=== PATIENT | male | born 1950 | race African-American/Black ===

== ENCOUNTER 2018-10-11 05:20 | Inpatient (IN) | payer MEDICARE, MEDICAID ==
[~2018-10-11] VITALS: Ht 188 cm; Wt 117.5 kg
[~2018-10-11 05:20] MED LIST: AMLO10TA80 PO; ASPI-1159 PO; GABA-531 PO; HYDR-4009 PO; IBUP-2030 PO; [UNRECOGNIZED DRUG - CODE] PO
[2018-10-11 06:43] LABS: CLARITY URINE CLEAR (CLEAR); COLOR URINE YELLOW (YELLOW); KETONES URINE NEGATIVE (NEGATIVE); LEUKOCYTE ESTERASE URINE NEGATIVE (NEGATIVE); NITRITE URINE NEGATIVE (NEGATIVE); OCCULT BLOOD URINE NEGATIVE (NEGATIVE); PROTEIN URINE NEGATIVE (NEGATIVE); SPECIFIC GRAVITY URINE 1.017 (1.005-1.030); UROBILINOGEN URINE 0.2 E.U./dL (0.2-1.0)
[2018-10-11] MEDS ORDERED: TRANEXAMIC ACID 1,000 MG/10 ML IV ONE (06:45)
[2018-10-11] MEDS ORDERED: TRANEXAMIC ACID 1,000 MG in SODIUM CHLORIDE 0.9% 100 ML IV SCH ×2 (06:45→12:45)
[2018-10-11] MEDS ORDERED: LACTATED RINGERS 1,000 ML IV SCH (08:00)
[2018-10-11] MEDS ORDERED: MORPHINE SULFATE/PF 1MG/ML 10ML AMP ONE ×2 (08:54→09:44)
[2018-10-11] MEDS ORDERED: BUPIVACAINE/EPINEPH/PF 0.25%/0.0005 10ML ONE (08:54)
[2018-10-11] MEDS ORDERED: VANCOMYCIN HCL 500 MG/VIAL ONE (08:55)
[2018-10-11] MEDS ORDERED: NORMAL SALINE 0.9% 10 ML SYR ONE ×3 (08:55→12:47)
[2018-10-11] MEDS ORDERED: EPINEPHRINE 1:1000 1 MG/ML AMP ONE (08:55)
[2018-10-11] MEDS ORDERED: BACITRACIN 50,000 UNITS/VIAL ONE ×2 (08:55→12:47)
[2018-10-11] MEDS ORDERED: BUPIVACAINE HCL/DEXTROSE/PF 0.75% 2ML AMP INJ ONE (09:44)
[2018-10-11] MEDS ORDERED: FENTANYL CITRATE/PF 50MCG/ML 2ML VIAL ONE (09:58)
[2018-10-11] MEDS ORDERED: NEOSTIGMINE METHYLSULFATE 1MG/ML 10 ML VIAL ONE (09:58)
[2018-10-11] MEDS ORDERED: PROPOFOL 200MG/20ML VIAL IV ONE (09:59)
[2018-10-11] MEDS ORDERED: MIDAZOLAM HCL 2 MG/2 ML VIAL ONE (09:59)
[2018-10-11] MEDS ORDERED: ROCURONIUM BROMIDE 10MG/ML VIAL 5ML IV ONE ×2 (09:59→15:02)
[2018-10-11] MEDS ORDERED: GLYCOPYRROLATE 0.2 MG/ML 2ML VIAL ONE (09:59)
[2018-10-11] MEDS ORDERED: HYDROMORPHONE HCL/PF 2MG/ML CPJ IV PRN (10:45)
[2018-10-11] MEDS ORDERED: MEPERIDINE HCL/PF 25MG/ML CPJ IV PRN (10:45)
[2018-10-11] MEDS ORDERED: LABETALOL 5MG/ML SYR 20 MG/4 ML SYRINGE IV PRN (10:45)
[2018-10-11] MEDS ORDERED: NALOXONE HCL 0.4 MG/ML 1ML VIAL IV PRN (10:45)
[2018-10-11] MEDS ORDERED: ONDANSETRON HCL 4MG/2ML INJ IV PRN ×2 (10:45→14:15)
[2018-10-11] MEDS ORDERED: DEXAMETHASONE 4MG/ML 1ML VIAL ONE (10:53)
[2018-10-11] MEDS ORDERED: ONDANSETRON HCL 4MG/2ML INJ ONE (10:53)
[2018-10-11] MEDS ORDERED: LOSA1TAB40 PO (11:31)
[2018-10-11] MEDS ORDERED: ALBUMIN HUMAN 12.5G/250ML (5%) IV ONE ×2 (11:40→11:56)
[2018-10-11] MEDS ORDERED: GELATIN SPONGE,ABSORBABLE 12-7MM SPONGE ONE (11:40)
[2018-10-11] MEDS ORDERED: THROMBIN (BOVINE) 5000 UNITS/VIAL TOP ONE (11:40)
[2018-10-11] MEDS ORDERED: TERA1CAP7 PO (12:17)
[2018-10-11] MEDS ORDERED: NITR0.4T49 SL (12:17)
[2018-10-11] MEDS ORDERED: OXYC10TA58 PO (12:17)
[2018-10-11] MEDS ORDERED: ALBU18HF2 IH (12:17)
[2018-10-11] MEDS ORDERED: BENZ100C86 PO (12:18)
[2018-10-11] MEDS ORDERED: [UNRECOGNIZED DRUG - OTHER] HHN (12:23)
[2018-10-11] MEDS ORDERED: TAMS0.4C31 PO (12:23)
[2018-10-11] MEDS ORDERED: FLUT1BLS3 IH (12:23)
[2018-10-11] MEDS ORDERED: HYDROMORPHONE PCA 10MG/50ML IV PRN (14:15)
[2018-10-11] MEDS ORDERED: ACETAMINOPHEN 650MG/20.3ML UDC PO PRN (14:15)
[2018-10-11] MEDS ORDERED: ONDANSETRON INJ IV PRN (14:15)
[2018-10-11] MEDS ORDERED: NALOXONE INJ IV PRN (14:15)
[2018-10-11] MEDS ORDERED: MAGNESIUM HYDROXIDE 400MG/5ML 30ML UDC PO PRN (14:15)
[2018-10-11] MEDS ORDERED: HYDROCODONE/ACETAMINOPHEN 10/325MG TABLET PO PRN (14:15)
[2018-10-11] MEDS ORDERED: HYDROMORPHONE HCL/PF 2MG/ML (OR) ONE (15:05)
[2018-10-11 16:00] VITALS: BP 102/75
[2018-10-11 20:00] VITALS: BP 130/73
[2018-10-11] MEDS: DOCUSATE SODIUM 100MG CAPSULE PO SCH (21:00)
[2018-10-11 21:59] VITALS: BP 129/82
[2018-10-11] MEDS: DEXT 5%/0.45% NACL 1000ML 1,000 ML IV SCH (22:27)
[2018-10-11] MEDS: ONDANSETRON HCL 4MG/2ML INJ IV PRN (22:28)
[2018-10-11] MEDS: CEFAZOLIN 2,000 MG in DEXT 5% WATER 100 ML IV SCH (22:28)
[2018-10-12] VITALS: BP 131/78
[2018-10-12 04:00] VITALS: BP 108/69
[2018-10-12] MEDS: IPRATROPIUM/ALBUTEROL 0.5-3(2.5)MG/3ML NEB HHN SCH ×5 (05:03→20:54)
[2018-10-12 06:33] LABS: BASOPHILS % 0.3 % (0.0-2.0); HEMOGLOBIN. 9.1 g/dL (14.0-18.0); LYMPHOCYTES % 7.4 % (20.0-50.0); MEAN CORPUSCULAR HEMOGLOBIN 29.6 pg (28.0-32.0); MEAN CORPUSCULAR VOLUME 91.3 fL (80.0-94.0); MEAN PLATELET VOLUME 7.6 fl (7.4-10.4); MONOCYTES % 12.2 % (2.0-8.0); NEUTROPHILS % 80.1 % (40.0-76.0); PLATELET 309 x1000/uL (130-400); RED BLOOD CELL COUNT 3.06 mill/uL (4.7-6.1); RED CELL DISTRIBUTION WIDTH 17.4 % (11.6-14.6)
[2018-10-12] MEDS: CEFAZOLIN 2,000 MG in DEXT 5% WATER 100 ML IV SCH (06:58)
[2018-10-12 08:00] VITALS: BP 138/76
[2018-10-12] MEDS: DOCUSATE SODIUM 100MG CAPSULE PO SCH ×2 (08:22→17:00)
[2018-10-12] MEDS ORDERED: FLUTICASONE FUROATE 200 1 INH/CAP ORI SCH (09:00)
[2018-10-12] MEDS: FLUTICASONE FUROATE 100 1 INH/CAP ORI SCH (09:00)
[2018-10-12] MEDS: ENOXAPARIN 40MG/0.4ML SYR SUBCUT SCH (10:16)
[2018-10-12] MEDS: DEXT 5%/0.45% NACL 1000ML 1,000 ML IV SCH (11:18)
[2018-10-12 12:00] VITALS: BP 136/71
[2018-10-12 16:00] VITALS: BP 161/81
[2018-10-12] MEDS: HYDROCODONE/ACETAMINOPHEN 10/325MG TABLET PO PRN ×2 (16:22→22:24)
[2018-10-12 20:00] VITALS: BP 163/87
[2018-10-12] MEDS: ONDANSETRON HCL 4MG/2ML INJ IV PRN (20:20)
[2018-10-12] MEDS: ZOLPIDEM TARTRATE 5MG TABLET PO PRN (22:18)
[2018-10-13] VITALS: BP_SYST 144; BP_SYST 157; BP_DIAS 77; BP_DIAS 85
[2018-10-13] MEDS: IPRATROPIUM/ALBUTEROL 0.5-3(2.5)MG/3ML NEB HHN SCH ×6 (00:21→21:58)
[2018-10-13 04:00] VITALS: BP 172/95
[2018-10-13] MEDS: HYDROCODONE/ACETAMINOPHEN 10/325MG TABLET PO PRN ×3 (06:54→20:55)
[2018-10-13 07:32] LABS: HEMATOCRIT. 29.4 % (42.0-52.0); HEMOGLOBIN. 9.5 g/dL (14.0-18.0); MEAN CORPUSCULAR HEMOGLOBIN 29.4 pg (28.0-32.0); MEAN CORPUSCULAR VOLUME 90.9 fL (80.0-94.0); MEAN PLATELET VOLUME 7.7 fl (7.4-10.4); PLATELET 298 x1000/uL (130-400); RED BLOOD CELL COUNT 3.23 mill/uL (4.7-6.1); RED CELL DISTRIBUTION WIDTH 17.2 % (11.6-14.6)
[2018-10-13 08:00] VITALS: BP 154/86
[2018-10-13] MEDS: FLUTICASONE FUROATE 100 1 INH/CAP ORI SCH (09:00)
[2018-10-13] MEDS: DOCUSATE SODIUM 100MG CAPSULE PO SCH ×2 (09:47→17:00)
[2018-10-13] MEDS: ENOXAPARIN 40MG/0.4ML SYR SUBCUT SCH (09:47)
[2018-10-13 12:00] VITALS: BP 164/83
[2018-10-13 14:09] LABS: PLATELET ESTIMATE NORMAL
[2018-10-13] MEDS: AMLODIPINE 10MG TABLET PO SCH (15:31)
[2018-10-13] MEDS: TERAZOSIN HCL 1MG CAPSULE PO SCH (15:31)
[2018-10-13] MEDS: TAMSULOSIN HCL 0.4MG SR CAPSULE PO SCH (15:32)
[2018-10-13 16:00] VITALS: BP 153/91
[2018-10-13 21:30] VITALS: BP 124/59
[2018-10-13] MEDS: ZOLPIDEM TARTRATE 5MG TABLET PO PRN (22:48)
[2018-10-14] VITALS: BP_SYST 138; BP_SYST 87; BP_DIAS 54; BP_DIAS 70
[2018-10-14] MEDS: IPRATROPIUM/ALBUTEROL 0.5-3(2.5)MG/3ML NEB HHN SCH ×5 (01:18→15:51)
[2018-10-14 04:00] VITALS: BP 151/86
[2018-10-14 08:00] VITALS: BP 140/88
[2018-10-14] MEDS: ENOXAPARIN 40MG/0.4ML SYR SUBCUT SCH (09:53)
[2018-10-14] MEDS: TERAZOSIN HCL 1MG CAPSULE PO SCH (09:54)
[2018-10-14] MEDS: TAMSULOSIN HCL 0.4MG SR CAPSULE PO SCH (09:54)
[2018-10-14] MEDS: DOCUSATE SODIUM 100MG CAPSULE PO SCH ×2 (09:55→09:59)
[2018-10-14] MEDS: AMLODIPINE 10MG TABLET PO SCH (09:55)
[2018-10-14] MEDS: HYDROCODONE/ACETAMINOPHEN 10/325MG TABLET PO PRN ×2 (09:57→16:02)
[2018-10-14] MEDS: FLUTICASONE FUROATE 100 1 INH/CAP ORI SCH (11:41)
[2018-10-14] MEDS: DEXT 5%/0.45% NACL 1000ML 1,000 ML IV SCH (11:43)
[2018-10-14] MEDS ORDERED: MORPHINE SULFATE 4 MG/ML CPJ (NOT FOR IM USE) IV SCH (13:00)
[2018-10-14 15:03] VITALS: BP 135/72
[2018-10-14 16:00] VITALS: BP 135/72
[2018-10-14 16:02] VITALS: BP 145/82
== END 2018-10-14 16:15 | DRG 470 ==
LOC: OR 05:20 → OBSVTOIN 20:12 → INTOOBSV 20:12 → 6EST 20:12
PROVIDERS: ADMIT Internal Medicine; ATTEND Orthopaedic Surgery
PROC: 0SRB04A Replacement of Left Hip Joint with Ceramic on Polyethylene Synthetic Substitute, Uncemented, Open Approach (ICD-10-PCS; principal; 2018-10-11)
DX: M16.12 Unilateral primary osteoarthritis, left hip (principal); M87.9 Osteonecrosis, unspecified; R71.0 Precipitous drop in hematocrit; M17.12 Unilateral primary osteoarthritis, left knee; I10 Essential (primary) hypertension; J44.9 Chronic obstructive pulmonary disease, unspecified; E78.5 Hyperlipidemia, unspecified; E66.9 Obesity, unspecified; N40.0 Benign prostatic hyperplasia without lower urinary tract symptoms; Z68.33 Body mass index [BMI] 33.0-33.9, adult; Z99.81 Dependence on supplemental oxygen; Z79.899 Other long term (current) drug therapy
CPT/HCPCS: 36415; 71045; 72170; 73502; 80048; 86850; 86900; 86920; 88305; 88311; 94640; 97163; 97166; 97530; C1776; C1893; G0378; J0171; J0690; J1100; J1170; J1650; J2250; J2274; J2405; J2704; J2710; J3010; J3370; J3490; J7050; J7060; J7620; P9041

== ENCOUNTER 2019-12-18 13:00 | Emergency (ER) | payer MEDICARE, MEDICAID ==
[~2019-12-18] VITALS: Ht 185.4 cm; Wt 104.0 kg
[~2019-12-18 13:00] MED LIST changes: +ALBU18HF2 IH; -ASPI-1159 PO; +ASPI-1497 PO; +BENZ100C86 PO; +FLUT1BLS3 IH; -GABA-531 PO; +LOSA1TAB40 PO; +NITR0.4T49 SL; +OXYC10TA58 PO; +TAMS0.4C31 PO; +TERA1CAP7 PO; -[UNRECOGNIZED DRUG - CODE] PO; +[UNRECOGNIZED DRUG - OTHER] HHN
[2019-12-18 14:58] LABS: CHLORIDE 103 mEq/L (98-107)
[2019-12-18 14:59] LABS: EOSINOPHILS % 7.4 % (0.0-5.0); HEMATOCRIT. 37.8 % (42.0-52.0); HEMOGLOBIN. 12.6 g/dL (14.0-18.0); LYMPHOCYTES % 22.1 % (20.0-50.0); MEAN CORPUSCULAR HEMOGLOBIN 31.3 pg (28.0-32.0); MEAN PLATELET VOLUME 7.5 fl (7.4-10.4); MONOCYTES % 9.2 % (2.0-8.0); NEUTROPHILS % 60.3 % (40.0-76.0); PLATELET 340 x1000/uL (130-400); RED BLOOD CELL COUNT 4.02 mill/uL (4.7-6.1); RED CELL DISTRIBUTION WIDTH 16.3 % (11.6-14.6)
[2019-12-18 15:00] LABS: PROTHROMBIN TIME 10.4 sec (9.6-11.0)
[2019-12-18 15:02] LABS: CLARITY URINE CLEAR (CLEAR); COLOR URINE YELLOW (YELLOW); KETONES URINE TRACE (NEGATIVE); LEUKOCYTE ESTERASE URINE NEGATIVE (NEGATIVE); NITRITE URINE NEGATIVE (NEGATIVE); OCCULT BLOOD URINE NEGATIVE (NEGATIVE); PH URINE 6.5 (4.5-8.0); PROTEIN URINE NEGATIVE (NEGATIVE); SPECIFIC GRAVITY URINE 1.031 (1.005-1.030)
[2019-12-18] MEDS ORDERED: BENZONATATE 100MG CAPSULE PO PRN (20:15)
[2019-12-18] MEDS ORDERED: ACETAMINOPHEN 325MG TABLET PO PRN (20:15)
[2019-12-18] MEDS: ENOXAPARIN 30MG/0.3ML SYR SUBCUT SCH (20:46)
[2019-12-18] MEDS: AZITHROMYCIN 500 MG TABLET PO SCH (20:46)
[2019-12-19] MEDS: ENOXAPARIN 30MG/0.3ML SYR SUBCUT SCH (10:27)
[2019-12-19] MEDS: AZITHROMYCIN 500 MG TABLET PO SCH (10:27)
[2019-12-19] MEDS ORDERED: IPRA3AMP9 NEB (11:05)
[2019-12-19] MEDS ORDERED: AZIT250T12 MT (11:05)
[2019-12-19 12:00] VITALS: BP 125/65
== END 2019-12-19 12:10 | disposition home or self-care (01) ==
LOC: ER 13:00 → EDBEDREQ 18:34 → EDBEDREQTM 18:34 → EDBEDREQ 19:12 → CANRESERV 12-19 11:03 → ENRESERV 12-19 11:03 → CANBEDREQ 12-19 11:59 → ER 12-19 12:10
DX: J44.0 Chronic obstructive pulmonary disease with (acute) lower respiratory infection (principal); J96.20 Acute and chronic respiratory failure, unspecified whether with hypoxia or hypercapnia; I11.9 Hypertensive heart disease without heart failure; E86.0 Dehydration; E11.9 Type 2 diabetes mellitus without complications; D64.9 Anemia, unspecified; E66.9 Obesity, unspecified; Z68.30 Body mass index [BMI] 30.0-30.9, adult; Z71.3 Dietary counseling and surveillance; Z99.81 Dependence on supplemental oxygen; Z79.899 Other long term (current) drug therapy; Z20.828 Contact with and (suspected) exposure to other viral communicable diseases
CPT/HCPCS: 36415; 71045; 80053; 81003; 82962; 83605; 83880; 84145; 84484; 85025; 85610; 87040; 87086; 87635; 87804; 93005; 96372; 99285; J1650

== ENCOUNTER 2019-12-29 13:06 | Emergency (ER) | payer MEDICARE, MEDICAID ==
[~2019-12-29] VITALS: Ht 175.3 cm; Wt 95.0 kg
[~2019-12-29 13:06] MED LIST changes: +AZIT250T12 MT; +IPRA3AMP9 NEB
[2019-12-29] MEDS ORDERED: KETOROLAC 30MG/ML VIAL IM ONE (14:30)
[2019-12-29 14:41] VITALS: BP 178/88
== END 2019-12-29 16:42 | disposition home or self-care (01) ==
LOC: ER 13:06
DX: M25.552 Pain in left hip (principal); E11.9 Type 2 diabetes mellitus without complications; I10 Essential (primary) hypertension; J44.9 Chronic obstructive pulmonary disease, unspecified; Z79.899 Other long term (current) drug therapy; Z79.82 Long term (current) use of aspirin
CPT/HCPCS: 73522; 96372; 99283; J1885

== ENCOUNTER 2022-04-02 15:16 | Emergency (ER) | payer MEDICARE, MEDICAID ==
[~2022-04-02] VITALS: Ht 172.7 cm; Wt 91.0 kg
[~2022-04-02 15:16] MED LIST changes: +ALBU2.5V13 NEB; +P50 PO; +TERA1CAP53 PO; -TERA1CAP7 PO
[2022-04-02] MEDS ORDERED: SODIUM CHLORIDE 0.9% 1,000 ML IV ONE (16:15)
[2022-04-02 16:29] LABS: BASOPHILS % 0.8 % (0.0-2.0); EOSINOPHILS % 8.2 % (0.0-5.0); HEMATOCRIT. 35.3 % (42.0-52.0); HEMOGLOBIN. 11.3 g/dL (14.0-18.0); LYMPHOCYTES % 12.7 % (20.0-50.0); MEAN CORPUSCULAR HEMOGLOBIN 28.1 pg (28.0-32.0); MEAN CORPUSCULAR VOLUME 87.7 fL (80.0-94.0); MEAN PLATELET VOLUME 7.2 fl (7.4-10.4); MONOCYTES % 12.6 % (2.0-8.0); NEUTROPHILS % 65.7 % (40.0-76.0); PLATELET 377 x1000/uL (130-400); RED BLOOD CELL COUNT 4.03 mill/uL (4.7-6.1); RED CELL DISTRIBUTION WIDTH 29.6 % (11.6-14.6)
[2022-04-02] MEDS ORDERED: ACETAMINOPHEN 325MG TABLET PO ONE (16:30)
[2022-04-02 16:36] LABS: CHLORIDE 108 mEq/L (98-107)
[2022-04-02 16:37] LABS: PROTHROMBIN TIME 11.1 sec (9.6-11.0)
[2022-04-02 16:48] LABS: ETHANOL BLOOD < 10 mg/dL
[2022-04-02 16:55] LABS: PLATELET ESTIMATE NORMAL
[2022-04-02] MEDS ORDERED: KETOROLAC 30MG/ML VIAL IV ONE (17:15)
[2022-04-02 18:00] VITALS: BP 149/88
[2022-04-02 18:21] LABS: CLARITY URINE CLEAR (CLEAR); COLOR URINE YELLOW (YELLOW); KETONES URINE NEGATIVE (NEGATIVE); LEUKOCYTE ESTERASE URINE NEGATIVE (NEGATIVE); NITRITE URINE NEGATIVE (NEGATIVE); OCCULT BLOOD URINE NEGATIVE (NEGATIVE); PH URINE 5.5 (4.5-8.0); PROTEIN URINE NEGATIVE (NEGATIVE); SPECIFIC GRAVITY URINE 1.027 (1.005-1.030); UROBILINOGEN URINE 0.2 E.U./dL (0.2-1.0)
[2022-04-02 18:54] LABS: *AMPHETAMINES SCREEN URINE NEGATIVE (NEGATIVE); *BARBITURATES SCREEN URINE NEGATIVE (NEGATIVE); *BENZODIAZEPINES SCREEN URINE NEGATIVE (NEGATIVE); *COCAINE SCREEN URINE NEGATIVE (NEGATIVE); CANNABINOID URINE SCREEN NEGATIVE (NEGATIVE); METHADONE URINE SCREEN NEGATIVE (NEGATIVE); OPIATES URINE SCREEN PRESUMTIVE POSITIVE (NEGATIVE); PHENCYCLIDINE URINE SCREEN NEGATIVE (NEGATIVE)
== END 2022-04-02 18:50 | disposition home or self-care (01) ==
LOC: ER 15:16
DX: R55 Syncope and collapse (principal); I11.9 Hypertensive heart disease without heart failure; E11.9 Type 2 diabetes mellitus without complications; J44.9 Chronic obstructive pulmonary disease, unspecified; Z87.891 Personal history of nicotine dependence; Z79.82 Long term (current) use of aspirin
CPT/HCPCS: 36415; 70450; 71045; 74176; 80053; 80305; 80320; 81003; 83690; 83880; 84484; 85025; 85610; 93005; 96374; 99285; J1885; J7030; G0480

== ENCOUNTER 2024-02-01 12:55 | Emergency (ER) | payer MEDICARE, MEDICAID ==
[~2024-02-01] VITALS: Ht 185.4 cm; Wt 100.0 kg
[2024-02-01 13:01] VITALS: O2SAT 98
[2024-02-01] MEDS: IBUPROFEN 800MG TABLET PO ONE (15:57)
[2024-02-01] MEDS: HYDROCODONE/ACETAMINOPHEN 7.5/325MG TABLET PO ONE (15:57)
[2024-02-01] MEDS ORDERED: HYDR-4001 MT (17:39)
[2024-02-01] MEDS ORDERED: P50 MT (17:39)
[2024-02-01] MEDS ORDERED: ALBU90AE INH (17:39)
[2024-02-01 18:41] VITALS: BP 149/95; PULSE 77; RESP 14; TEMP 98.2
== END 2024-02-01 18:44 | disposition home or self-care (01) ==
LOC: ER 13:27
DX: R07.81 Pleurodynia (principal); J44.1 Chronic obstructive pulmonary disease with (acute) exacerbation; Z79.82 Long term (current) use of aspirin; Z79.899 Other long term (current) drug therapy
CPT/HCPCS: 71045; 71101; 99284

== ENCOUNTER 2025-01-19 18:31 | Inpatient (IN) | payer MEDICARE, MEDICAID ==
[~2025-01-19] VITALS: Ht 185.4 cm; Wt 108.0 kg
[~2025-01-19 18:31] MED LIST changes: +ALBU90AE INH; +HYDR-4001 MT; +P50 MT
[2025-01-19] MEDS: ACETAMINOPHEN 500MG TABLET PO ONE (20:22)
[2025-01-19 20:23] LABS: CHLORIDE 110 mEq/L (98-107); POTASSIUM 3.9 mEq/L (3.5-5.1); SODIUM 142 mEq/L (136-145)
[2025-01-19 20:24] LABS: CALCIUM 9.5 mg/dL (8.7-10.4); CARBON DIOXIDE 22 mEq/L (21-32)
[2025-01-19] MEDS: LIDOCAINE 5% PATCH TOP SCH (20:26)
[2025-01-19 20:28] LABS: BASOPHILS % 0.9 % (0.0-2.0); EOSINOPHILS % 12.4 % (0.0-5.0); HEMATOCRIT. 38.1 % (42.0-52.0); HEMOGLOBIN. 12.5 g/dL (14.0-18.0); LYMPHOCYTES % 19.4 % (20.0-50.0); MEAN CORPUSCULAR HGB CONC 32.9 g/dL (31.0-37.0); MEAN CORPUSCULAR VOLUME 94.2 fL (80.0-94.0); MEAN PLATELET VOLUME 7.6 fl (7.4-10.4); MONOCYTES % 9.8 % (2.0-8.0); NEUTROPHILS % 57.5 % (40.0-76.0); PLATELET 258 x1000/uL (130-400); RED BLOOD CELL COUNT 4.04 mill/uL (4.7-6.1); RED CELL DISTRIBUTION WIDTH 15.2 % (11.6-14.6); WHITE BLOOD COUNT 5.6 x1000/uL (4.5-11.0)
[2025-01-19 20:29] LABS: CREATININE 1.5 mg/dL (0.6-1.3); GLUCOSE 124 mg/dL (70-105); UREA NITROGEN BLOOD 22 mg/dL (9-23)
[2025-01-19 20:36] LABS: TROPONIN I HIGH SENSITIVITY < 4 ng/L (3.0-53)
[2025-01-19] MEDS ORDERED: DIPHENHYDRAMINE 50MG/ML VIAL IV PRN (22:30)
[2025-01-19] MEDS ORDERED: IPRATROPIUM/ALBUTEROL 0.5-3(2.5)MG/3ML NEB HHN PRN (22:30)
[2025-01-19] MEDS ORDERED: MAGNESIUM/ALUMINUM HYDROXIDE/SIMETHICONE 30ML UDC PO PRN (22:30)
[2025-01-19] MEDS ORDERED: ONDANSETRON HCL 4MG/2ML INJ IV PRN (22:30)
[2025-01-19] MEDS ORDERED: ACETAMINOPHEN 325MG TABLET PO PRN (22:30)
[2025-01-19] MEDS ORDERED: DEXTROSE 50% WATER 50ML SYRINGE IV PRN (22:30)
[2025-01-19 23:12] VITALS: BP 145/80; PULSE 80; RESP 16; TEMP 36.9; TEMP 37; O2SAT 99
[2025-01-20] VITALS: BP 118/80; PULSE 72; RESP 15; TEMP 36.8; O2SAT 99
[2025-01-20] MEDS: TRAMADOL 50MG TABLET PO PRN (00:09)
[2025-01-20] MEDS: GABAPENTIN 300MG CAPSULE PO SCH (00:09)
[2025-01-20] MEDS ORDERED: MIRT45TA83 PO (03:45)
[2025-01-20] MEDS ORDERED: TRAZ-252 PO (03:45)
[2025-01-20] MEDS ORDERED: EMPA1TAB7 PO (03:45)
[2025-01-20] MEDS ORDERED: ZOLP10TA2 PO (03:45)
[2025-01-20] MEDS ORDERED: NALOXONE HCL 0.4MG/ML VIAL IV PRN (03:45)
[2025-01-20] MEDS ORDERED: GABA-1180 PO (03:45)
[2025-01-20] MEDS ORDERED: ALBU18HF2 PO (03:48)
[2025-01-20 04:00] VITALS: BP 143/64; PULSE 62; RESP 15; TEMP 36.6; O2SAT 98
[2025-01-20] MEDS: SODIUM CHLORIDE 0.9% 3ML FLUSH IVF SCH (06:00)
[2025-01-20 07:30] LABS: TROPONIN I HIGH SENSITIVITY 4 ng/L (3.0-53)
[2025-01-20 08:00] VITALS: BP 161/101; PULSE 80; RESP 20; TEMP 36.8; O2SAT 99
[2025-01-20] MEDS: BLOOD SUGAR DIAGNOSTIC STRIP TEST SCH (09:00)
[2025-01-20] MEDS: ENOXAPARIN 40MG/0.4ML SYR SUBCUT SCH (11:18)
[2025-01-20] MEDS: DOCUSATE SODIUM 100MG CAPSULE PO SCH (11:19)
[2025-01-20] MEDS: EMPAGLIFLOZIN 25MG TABLET PO SCH (11:20)
[2025-01-20] MEDS: AMLODIPINE 10MG TABLET PO SCH (11:20)
[2025-01-20] MEDS: PANTOPRAZOLE 40MG DR TABLET PO SCH (11:20)
[2025-01-20] MEDS: LOSARTAN 25 MG TABLET PO SCH (11:20)
[2025-01-20] MEDS: INSULIN LISPRO 100 UNITS/ML SUBCUT SCH (11:21)
[2025-01-20 12:00] VITALS: BP 109/70; PULSE 63; RESP 14; TEMP 36.4; O2SAT 95
[2025-01-20] MEDS: GUAIFENESIN 200MG/10ML SUGAR FREE UDC PO PRN (13:44)
[2025-01-20 16:00] VITALS: BP 121/79; PULSE 71; RESP 12; TEMP 36.6; O2SAT 99
[2025-01-20 20:00] VITALS: BP 133/73; PULSE 67; RESP 13; TEMP 36.6; O2SAT 93
[2025-01-20] MEDS: MIRTAZAPINE 15MG TABLET PO SCH (20:21)
[2025-01-20] MEDS: TRAZODONE HCL 50MG TABLET PO SCH (20:22)
[2025-01-20 21:01] LABS: TROPONIN I HIGH SENSITIVITY < 4 ng/L (3.0-53)
[2025-01-21] VITALS (7 sets, daily range): BP systolic 107–138; BP diastolic 61–78; PULSE 69–79; RESP 14–18; TEMP 36.3–36.9; O2SAT 92–100
[2025-01-21 01:42] LABS: CLARITY URINE CLEAR (CLEAR); COLOR URINE YELLOW (YELLOW); GLUCOSE URINE 3+ (NEGATIVE); KETONES URINE NEGATIVE (NEGATIVE); LEUKOCYTE ESTERASE URINE NEGATIVE (NEGATIVE); NITRITE URINE NEGATIVE (NEGATIVE); OCCULT BLOOD URINE NEGATIVE (NEGATIVE); PROTEIN URINE NEGATIVE (NEGATIVE); SPECIFIC GRAVITY URINE 1.013 (1.005-1.030); UROBILINOGEN URINE 0.2 E.U./dL (0.2-1.0)
[2025-01-21 04:25] LABS: RBC URINE NONE SEEN /hpf (0-2); SQUAMOUS EPITHELIAL CELL URINE FEW /lpf (RARE/1+); WBC URINE 0-2 /hpf (0-2)
[2025-01-21 04:26] LABS: BACTERIA URINE 1+
[2025-01-21] MEDS: BUDESONIDE 0.5MG/2ML NEB HHN SCH (09:10)
[2025-01-21] MEDS: IPRATROPIUM/ALBUTEROL 0.5-3(2.5)MG/3ML NEB HHN SCH (09:10)
[2025-01-21] MEDS: ACETAMINOPHEN 325MG TABLET PO PRN (14:10)
[2025-01-22] VITALS (8 sets, daily range): BP systolic 109–149; BP diastolic 66–106; PULSE 73–94; RESP 13–20; TEMP 36.6–37.1; O2SAT 95–100
[2025-01-22 16:19] LABS: PROTHROMBIN TIME 10.8 sec (9.6-11.0)
[2025-01-22] MEDS: ZOLPIDEM TARTRATE 5MG TABLET PO PRN (22:58)
[2025-01-22] MEDS: DEXT 5%/LACTATED RINGERS 1,000 ML IV SCH (23:04)
[2025-01-23] VITALS (40 sets, daily range): BP systolic 117–179; BP diastolic 65–139; PULSE 66–115; RESP 11–20; TEMP 36.4–36.8; O2SAT 92–100
[2025-01-23 05:27] LABS: HEMOGLOBIN 12.3 g/dL (14.0-18.0); MEAN CORPUSCULAR HEMOGLOBIN 30.9 pg (28.0-32.0); MEAN CORPUSCULAR HGB CONC 32.5 g/dL (31.0-37.0); MEAN CORPUSCULAR VOLUME 95.4 fL (80.0-94.0); PLATELET 241 x1000/uL (130-400); RED BLOOD CELL COUNT 3.99 mill/uL (4.7-6.1); RED CELL DISTRIBUTION WIDTH 15.8 % (11.6-14.6)
[2025-01-23 06:04] LABS: CHLORIDE 103 mEq/L (98-107); POTASSIUM 3.9 mEq/L (3.5-5.1); SODIUM 138 mEq/L (136-145)
[2025-01-23 06:05] LABS: CALCIUM 9.1 mg/dL (8.7-10.4); CARBON DIOXIDE 25 mEq/L (21-32)
[2025-01-23 06:10] LABS: CREATININE 1.3 mg/dL (0.6-1.3); GLUCOSE 139 mg/dL (70-105); UREA NITROGEN BLOOD 19 mg/dL (9-23)
[2025-01-23] MEDS: FAMOTIDINE 20MG TABLET PO SCH (08:20)
[2025-01-23] MEDS ORDERED: THROMBIN (BOVINE) 5000 UNITS/VIAL TOP ONE (10:19)
[2025-01-23] MEDS ORDERED: LIDOCAINE HCL/EPINEPHRINE 1%-EPI 1:100,000 20ML VIAL ONE (10:19)
[2025-01-23] MEDS ORDERED: GENTAMICIN SULF 40MG/ML 2ML VIAL ONE (10:19)
[2025-01-23] MEDS ORDERED: ONDANSETRON HCL 4MG/2ML INJ ONE (12:52)
[2025-01-23] MEDS ORDERED: CEFAZOLIN SODIUM 1000MG/VIAL ONE (12:52)
[2025-01-23] MEDS ORDERED: FENTANYL CITRATE/PF 50MCG/ML 2ML VIAL ONE (12:52)
[2025-01-23] MEDS ORDERED: ETOMIDATE 2MG/ML 10ML VIAL IV ONE (12:52)
[2025-01-23] MEDS ORDERED: SUCCINYLCHOLINE CHLORIDE 200MG/10ML IV ONE (12:52)
[2025-01-23] MEDS ORDERED: ROCURONIUM BROMIDE 10MG/ML VIAL 5ML IV ONE (12:52)
[2025-01-23] MEDS ORDERED: MIDAZOLAM HCL 2 MG/2 ML VIAL ONE (12:52)
[2025-01-23] MEDS ORDERED: DEXAMETHASONE 4MG/ML 1ML VIAL ONE (12:52)
[2025-01-23] MEDS ORDERED: PROPOFOL 200MG/20ML VIAL IV ONE (13:03)
[2025-01-23] MEDS ORDERED: HYDROMORPHONE HCL/PF 2MG/ML INJ ONE (14:26)
[2025-01-23] MEDS ORDERED: SUGAMMADEX SODIUM 200MG/2ML VIAL IV ONE (15:04)
[2025-01-23] MEDS ORDERED: NEOSTIGMINE METHYLSULFATE 1MG/ML 10 ML VIAL ONE (15:10)
[2025-01-23] MEDS ORDERED: GLYCOPYRROLATE 0.2 MG/ML 2ML VIAL ONE ×2 (15:11)
[2025-01-23] MEDS: DEXAMETHASONE 4MG/ML 1ML VIAL IV SCH (17:12)
[2025-01-23] MEDS: MORPHINE SULFATE 4 MG/ML INJ (FOR IV/IM USE) IV PRN (17:13)
[2025-01-23] MEDS: NICARDIPINE 100 MG in SODIUM CHLORIDE 0.9% 60 ML IV PRN (17:38)
[2025-01-23] MEDS: CEFAZOLIN 1000MG PREMIX 50ML IV SCH (21:34)
[2025-01-23] MEDS ORDERED: CEFAZOLIN SODIUM 1000MG/VIAL IV SCH (22:00)
[2025-01-23 22:18] LABS: BG BASE EXCESS -4.9 mmol/L (-2.0-3.0); BG CARBOXYHEMOGLOBIN 0.7 % (0.5-1.5); BG FRACTION INSPIRED OXYGEN 40; BG HCO3 ACT 19.6 mmol/L (21.0-28.0); BG METHEMOGLOBIN 0.1 % (0.5-1.5); BG OXYHEMOGLOBIN 93.2 % (94.0-98.0); BG PCO2 34.8 mmHg (35.0-48.0); BG PH 7.369 (7.350-7.450); BG PO2 71.4 mmHg (83.0-108.0); BG SAMPLE SITE LEFT RADIAL; BG TOTAL HEMOGLOBIN 14.1 g/dL (13.5-17.5); BG VENT MODE VENT - SIMV
[2025-01-23] MEDS: DIPHENHYDRAMINE 50MG/ML VIAL IV SCH (23:06)
[2025-01-24] VITALS (60 sets, daily range): BP systolic 133–179; BP diastolic 65–105; PULSE 92–120; RESP 9–32; TEMP 36.4–37.2; O2SAT 93–100
[2025-01-24] MEDS: FENTANYL CITRATE 2,500 MCG in SODIUM CHLORIDE 0.9% 200 ML IV ONE (00:26)
[2025-01-24] MEDS ORDERED: FENTANYL 2500MCG/250ML PMX 250 ML IV ONE (00:30)
[2025-01-24 05:40] LABS: HEMATOCRIT. 38.4 % (42.0-52.0); HEMOGLOBIN. 12.6 g/dL (14.0-18.0); MEAN CORPUSCULAR HEMOGLOBIN 31.5 pg (28.0-32.0); MEAN CORPUSCULAR HGB CONC 32.9 g/dL (31.0-37.0); MEAN CORPUSCULAR VOLUME 95.6 fL (80.0-94.0); MEAN PLATELET VOLUME 7.5 fl (7.4-10.4); PLATELET 256 x1000/uL (130-400); RED BLOOD CELL COUNT 4.02 mill/uL (4.7-6.1); RED CELL DISTRIBUTION WIDTH 15.9 % (11.6-14.6); WHITE BLOOD COUNT 9.1 x1000/uL (4.5-11.0)
[2025-01-24 06:06] LABS: DIFFERENTIAL COMMENT 1
[2025-01-24 06:18] LABS: CALCIUM 9.1 mg/dL (8.7-10.4); CARBON DIOXIDE 23 mEq/L (21-32); CHLORIDE 103 mEq/L (98-107); POTASSIUM 4.5 mEq/L (3.5-5.1); SODIUM 138 mEq/L (136-145)
[2025-01-24 06:23] LABS: THYROID STIMULATING HORMONE 1.05 uIU/mL (0.55-4.78)
[2025-01-24 06:24] LABS: CREATININE 1.4 mg/dL (0.6-1.3); GLUCOSE 229 mg/dL (70-105); UREA NITROGEN BLOOD 18 mg/dL (9-23)
[2025-01-24 09:00] LABS: PLATELET ESTIMATE NORMAL
[2025-01-24] MEDS: DOCUSATE SODIUM SUGAR FREE 100MG/10ML UDC NG SCH (09:00)
[2025-01-24] MEDS ORDERED: DOCUSATE SODIUM 100MG CAPSULE NG SCH (09:00)
[2025-01-24 09:46] LABS: BG BASE EXCESS -1.2 mmol/L (-2.0-3.0); BG CARBOXYHEMOGLOBIN 0.7 % (0.5-1.5); BG DEOXYHEMOGLOBIN 4.4 % (0.0-5.0); BG FRACTION INSPIRED OXYGEN 30; BG HCO3 ACT 23.2 mmol/L (21.0-28.0); BG METHEMOGLOBIN 0.3 % (0.5-1.5); BG OXYGEN SATURATION 95.6 % (94.0-98.0); BG OXYHEMOGLOBIN 94.6 % (94.0-98.0); BG PH 7.404 (7.350-7.450); BG PO2 78.1 mmHg (83.0-108.0); BG SAMPLE SITE RIGHT RADIAL; BG TOTAL HEMOGLOBIN 13.3 g/dL (13.5-17.5); BG VENT MODE VENT - CPAP
[2025-01-24] MEDS: BISACODYL 10MG SUPP PR SCH (10:15)
[2025-01-24] MEDS: LOSARTAN 25 MG TABLET PO SCH (21:46)
[2025-01-24] MEDS: BISACODYL 5MG TABLET PO SCH (21:47)
[2025-01-24] MEDS: SENNOSIDES 8.6MG TABLET PO SCH (21:47)
[2025-01-25 01:47] VITALS: BP 168/83; PULSE 106; RESP 20; TEMP 36.6; O2SAT 92
[2025-01-25 04:00] VITALS: BP 169/85; PULSE 88; RESP 19; TEMP 36.5; O2SAT 97
[2025-01-25 08:00] VITALS: BP 152/73; PULSE 108; RESP 19; TEMP 36.4; O2SAT 94
[2025-01-25] MEDS: DOCUSATE SODIUM 250MG CAPSULE PO SCH (09:28)
[2025-01-25 12:00] VITALS: BP 151/79; PULSE 88; RESP 15; TEMP 36.7; O2SAT 95
[2025-01-25] MEDS: HYDRALAZINE HCL 25MG TABLET PO SCH (15:31)
[2025-01-25] MEDS ORDERED: BISACODYL 5MG TABLET PO PRN (15:45)
[2025-01-25 16:00] VITALS: BP 152/82; PULSE 89; RESP 17; TEMP 36.7; O2SAT 96
[2025-01-25] MEDS: LACTULOSE 20G/30ML UDC PO SCH (18:27)
[2025-01-25 20:00] VITALS: BP 129/84; PULSE 97; RESP 19; TEMP 36.6; O2SAT 98
[2025-01-25] MEDS: SENNOSIDES 8.6MG TABLET PO SCH (20:38)
[2025-01-26] VITALS: BP 155/80; PULSE 95; RESP 19; TEMP 36.4; O2SAT 97
[2025-01-26 04:00] VITALS: BP 175/90; PULSE 91; RESP 19; TEMP 36.6; O2SAT 97
[2025-01-26] MEDS: CLONIDINE 0.1MG TABLET PO PRN (04:58)
[2025-01-26 08:00] VITALS: BP 134/69; PULSE 87; RESP 18; TEMP 36.1; O2SAT 100
[2025-01-26 12:00] VITALS: BP 128/83; PULSE 114; RESP 17; TEMP 36.7; O2SAT 100
[2025-01-26] MEDS: HYDRALAZINE HCL 25MG TABLET PO SCH (14:06)
[2025-01-26 16:00] VITALS: BP 126/83; PULSE 104; RESP 16; RESP 18; TEMP 36.9; O2SAT 95
[2025-01-26 18:07] LABS: HEMATOCRIT. 39.9 % (42.0-52.0); MEAN CORPUSCULAR HEMOGLOBIN 31.2 pg (28.0-32.0); MEAN CORPUSCULAR HGB CONC 32.6 g/dL (31.0-37.0); MEAN CORPUSCULAR VOLUME 95.8 fL (80.0-94.0); MEAN PLATELET VOLUME 7.2 fl (7.4-10.4); PLATELET 268 x1000/uL (130-400); RED BLOOD CELL COUNT 4.17 mill/uL (4.7-6.1); RED CELL DISTRIBUTION WIDTH 15.7 % (11.6-14.6); WHITE BLOOD COUNT 6.7 x1000/uL (4.5-11.0)
[2025-01-26 18:09] LABS: DIFFERENTIAL COMMENT 1
[2025-01-26 18:17] LABS: CHLORIDE 106 mEq/L (98-107); POTASSIUM 3.8 mEq/L (3.5-5.1); SODIUM 140 mEq/L (136-145)
[2025-01-26 18:18] LABS: CARBON DIOXIDE 24 mEq/L (21-32)
[2025-01-26 18:19] LABS: CALCIUM 9.2 mg/dL (8.7-10.4)
[2025-01-26 18:23] LABS: CREATININE 1.2 mg/dL (0.6-1.3); GLUCOSE 102 mg/dL (70-105)
[2025-01-26 18:24] LABS: UREA NITROGEN BLOOD 22 mg/dL (9-23)
[2025-01-26 18:25] LABS: ALANINE AMINOTRANSFERASE 35 IU/L (10-49); ALBUMIN 4.1 g/dL (3.2-4.8); ASPARTATE AMINOTRANSFERASE 34 IU/L (<34)
[2025-01-26 18:26] LABS: BILIRUBIN TOTAL 0.2 mg/dL (0.1-1.0); PROTEIN TOTAL 6.7 g/dL (6.0-8.3)
[2025-01-26 19:12] LABS: ANISOCYTOSIS 1+; PLATELET ESTIMATE NORMAL
[2025-01-26 20:00] VITALS: BP 175/93; PULSE 94; RESP 19; TEMP 36.4; O2SAT 98
== END 2025-01-26 21:09 | DRG 471 ==
LOC: ER 18:31 → EDBEDREQ 20:58 → ENRESERV 21:31 → 3WST 22:40 → MICUSO 01-23 14:44 → 6WST 01-24 13:32
PROVIDERS: ADMIT Internal Medicine; ATTEND Internal Medicine
PROC: 0RG10A0 Fusion of Cervical Vertebral Joint with Interbody Fusion Device, Anterior Approach, Anterior Column, Open Approach (ICD-10-PCS; principal; 2025-01-23)
PROC: 0RB30ZZ Excision of Cervical Vertebral Disc, Open Approach (ICD-10-PCS; 2025-01-23)
PROC: 0BH17EZ Insertion of Endotracheal Airway into Trachea, Via Natural or Artificial Opening (ICD-10-PCS; 2025-01-23)
PROC: 5A1935Z Respiratory Ventilation, Less than 24 Consecutive Hours (ICD-10-PCS; 2025-01-23)
DX: M48.02 Spinal stenosis, cervical region (principal); G82.50 Quadriplegia, unspecified; J96.01 Acute respiratory failure with hypoxia; N17.9 Acute kidney failure, unspecified; M47.12 Other spondylosis with myelopathy, cervical region; M48.061 Spinal stenosis, lumbar region without neurogenic claudication; E11.42 Type 2 diabetes mellitus with diabetic polyneuropathy; I11.0 Hypertensive heart disease with heart failure; I50.9 Heart failure, unspecified; D64.9 Anemia, unspecified; M47.816 Spondylosis without myelopathy or radiculopathy, lumbar region; R53.81 Other malaise; G89.29 Other chronic pain; K59.00 Constipation, unspecified; Z96.642 Presence of left artificial hip joint; Z96.652 Presence of left artificial knee joint; Z99.81 Dependence on supplemental oxygen; Z87.891 Personal history of nicotine dependence; Z78.1 Physical restraint status; Z79.82 Long term (current) use of aspirin; Z79.899 Other long term (current) drug therapy
CPT/HCPCS: 36415; 36600; 71045; 72040; 72141; 72148; 74018; 76000; 76705; 80048; 80053; 81003; 82375; 82805; 82962; 83036; 83735; 83880; 84443; 84484; 85025; 85027; 86850; 86900; 88304; 88311; 93005; 93306; 93970; 94003; 94070; 94640; 94664; 95925; 95926; 95928; 95929; 97162; 98960; 99285; A4606; G0378; J0330; J0690; J1100; J1171; J1200; J1580; J1650; J1815; J2004; J2250; J2270; J2405; J2704; J2710; J3010; J3490; J7050; J7121; J7626; L0172; C1713